=== PATIENT | female | born 1985 | race American Indian/Alaskan Native ===

== ENCOUNTER 2018-09-09 11:00 | Emergency (ER) | payer OTHER ==
[2018-09-09 11:17] VITALS: BP 134/68
--- NOTE | 2018-09-09 11:23 | Emergency Department Report ---
Blank Doc - Documentation Documentation: 33 y o f presents with vag bleed started this am states approx 8 weeks gestation no pelv pain This initial assessment diagnostic orders/clinical plan/treatment (s) is/Are subject change based on patient's health status, clinical progression and re- assessment by fellow clinical providers in the ED. Further treatment and work-up at subsequent clinical providers discretion. Patient/guardians urged not to elope from their condition may be serious if not clinically assessed and managed. Initial order include: labs,US ordered ACC evaluate
[2018-09-09 12:09] LABS: Basophils % (Auto) 0.2 % (0.0-1.8); Eosinophils % (Auto) 0.5 % (0.0-4.3); Hematocrit 37.6 % (30.3-42.9); Hemoglobin 12.6 gm/dl (10.1-14.3); Lymphocytes # (Auto) 1.6 K/mm3 (1.2-5.4); Mean Corpuscular HGB Conc 34 % (30-34); Mean Corpuscular Volume 83 fl (79-97); Monocytes # (Auto) 0.8 K/mm3 (0.0-0.8); Monocytes % (Auto) 12.2 % (0.0-7.3); Platelet Count 260 K/mm3 (140-440); Red Blood Count 4.53 M/mm3 (3.65-5.03); Red Cell Distribution Width 14.1 % (13.2-15.2)
--- NOTE | 2018-09-09 13:25 | Emergency Department Report ---
HPI - General Chief Complaint: Vaginal Bleeding Time Seen by Provider: 09/09/18 11:19 - HPI HPI: 33-year-old female presents to the emergency department with complaint of some moderate to heavy vaginal bleeding that started this morning. She also complains of some left-sided flank and abdominal pain that was sharp earlier today but has since resolved. The patient is currently about 7 weeks . She is from [place] and recently had an ultrasound done that showed her to be about 6 weeks . She says that they saw a fetus and heartbeat at that time. With this she is . Otherwise her past medical history. She has not taken anything for her symptoms prior to arrival. ED Past Medical Hx - Past Medical History Previous Medical History?: No - Surgical History Past Surgical History?: Yes Hx Appendectomy: Yes - Social History Smoking Status: Never Smoker Substance Use Type: None - Medications Home Medications: Home Medications Medication Instructions Recorded Confirmed Last Taken Type Nitrofurantoin Monohyd/M-Cryst 100 mg PO BID #14 capsule 09/09/18 Unknown Rx [Macrobid 100 mg Capsule] ED Review of Systems ROS: Stated complaint: 7 WKS /BLEEDING Other details as noted in HPI Comment: All other systems reviewed and negative Constitutional: denies: chills, fever Eyes: denies: eye pain, vision change ENT: denies: ear pain, throat pain Respiratory: denies: cough, shortness of breath Cardiovascular: denies: chest pain, palpitations Gastrointestinal: abdominal pain. denies: nausea, vomiting Genitourinary: other (vaginal bleeding). denies: dysuria Musculoskeletal: denies: back pain, arthralgia Skin: denies: rash, lesions Neurological: denies: headache, weakness Physical Exam - Physical Exam Vital Signs: Vital Signs 09/09/18 11:15 Temperature 97.8 F Pulse Rate 79 Respiratory 18 Rate Blood Pressure 134/68 O2 Sat by Pulse 98 Oximetry Physical Exam: GENERAL: The patient is well-developed well-nourished. HEENT: Normocephalic. Atraumatic. Patient has moist mucous membranes. EYES: Extraocular motions are intact. Pupils are equal and reactive to light bilaterally. NECK: Supple. Trachea is midline. CHEST/LUNGS: Clear to auscultation. There is no respiratory distress noted. HEART/CARDIOVASCULAR: Regular. There is no tachycardia. There is no obvious murmur. ABDOMEN: Abdomen is soft, nontender. Patient has normal bowel sounds. There is no abdominal distention. SKIN: Skin is warm and dry. NEURO: The patient is awake, alert, and oriented. The patient is cooperative. The patient has no focal neurologic deficits. The patient has normal speech. MUSCULOSKELETAL: There is no tenderness or deformity. There is no evidence of acute injury. ED Course Vital Signs 09/09/18 11:15 Temperature 97.8 F Pulse Rate 79 Respiratory 18 Rate Blood Pressure 134/68 O2 Sat by Pulse 98 Oximetry ED Medical Decision Making - Lab Data Result diagrams: 09/09/18 11:56 - Radiology Data Radiology results: report reviewed ULTRASOUND OB LESS THAN 14 WEEKS - TRANSABDOMINAL AND TRANSVAGINAL INDICATION: Vaginal bleeding. Serum beta-hCG 120,236 units. COMPARISON: None similar at this institution. FINDINGS: Transabdominal and transvaginal pelvic sonography performed in this patient with LMP of 05/31/2018 and estimated menstrual age of 14 weeks and 3 days. It demonstrates an anteverted, gravid uterus estimated at 10.2 x 5.5 x 5.8 cm with a single, viable intrauterine gestation with heart rate of 177 beats per minute. Approximately 4.4 cm fundal fibroid toward the right, endovaginal image 12. Mean gestational sac diameter of 5.08 cm corresponds to 10 weeks and 6 days. A 2.1 x 0.8 cm paragestational possible subchorionic hemorrhage as on endovaginal image 21. Mean crown-rump length of 1.61 cm corresponds to 8 weeks and 0 days. Yolk sac measures 5 mm. Closed cervix. No significant pelvic free fluid. Right ovary only seen transvaginally and prominent/enlarged at 6.9 x 3 x 4.4 cm with a 3.2 cm complex, slightly heterogeneous/echogenic focus as on endovaginal image 29. Left ovary unremarkable at 2.9 x 1.6 x 2.2 cm. CONCLUSION: 1. Single, live intrauterine gestation with an ultrasound estimated age of 9 weeks and 3 days and CLAU of 04/11/2019. Please also correlate clinically for accuracy of the LMP to explain approximately 5 week discrepancy with the estimated menstrual age. 2. Various other findings, as above. Thank you for the opportunity to participate in this patient's care. Transcribed By: RS Dictated By: NICOLE REED MD Electronically Authenticated By: NICOLE REED MD Signed Date/Time: 09/09/18 3547 - Medical Decision Making This patient presents to the emergency department with a complaint of some spo ntaneous vaginal bleeding while . She also had some left-sided abdominal and/or pelvic pain that has since resolved. Labs are mostly unremarkable except for a urinary tract infection. Ultrasound shows a live intrauterine at about 10 weeks. I have discussed with the patient regarding the diagnosis of threatened miscarriage. She will be started on antibiotics and will continue taking her vitamins. She returns back to [place] tomorrow and has been instructed to follow up with an CRISIS THERAPIST as soon as possible. Otherwise she will return to the closest emergency Department with any worsening of her symptoms or with any acute distress. She understands and agrees to the plan. - Differential Diagnosis miscarriage, fibroids, UTI, Critical Care Time: No Critical care attestation.: If time is entered above; I have spent that time in minutes in the direct care of this critically ill patient, excluding procedure time. ED Disposition Clinical Impression: Threatened miscarriage Qualifiers: Weeks of gestation: 10 weeks Qualified Code(s): Z3A.10 - 10 weeks gestation of UTI (urinary tract infection) Qualifiers: Urinary tract infection type: acute cystitis Hematuria presence: with hematuria Qualified Code(s): N30.01 - Acute cystitis with hematuria Disposition: - TO HOME OR SELFCARE Is pt being admited?: No Condition: Stable Instructions: Threatened Miscarriage (ED), (ED), Urinary Tract Infection in Women (ED) Additional Instructions: Please follow up with an CRISIS THERAPIST when you return home. Return to emergency department with any increased vaginal bleeding, any sharp abdominal or pelvic cramping pains, worsening of your symptoms, or any acute distress. Take the antibiotics as prescribed for your urinary tract infection. You can take Tylenol every 4-6 hours, using weight-based dosing, as needed for any discomfort. Otherwise do not take any medication that is not prescribed by a physician. Prescriptions: Nitrofurantoin Monohyd/M-Cryst [Macrobid 100 mg Capsule] 100 mg PO BID #14 capsule Referrals: OBRAPHAELN, Albina [Other] - VLADIMIR Time of Disposition: 14:27
[2018-09-09 13:28] LABS: Bacteria,Urine 1+ /HPF (Negative); Bilirubin,Urine NEG (Negative); Blood,Urine LG (Negative); Color,Urine Yellow (Yellow); Mucus,Urine FEW /HPF; Protein,Urine <15 mg/dL mg/dL (Negative); Urobilinogen,Urine < 2.0 mg/dL (<2.0)
[2018-09-09] MEDS ORDERED: MACROBID PO ONE (13:34)
--- NOTE | 2018-09-09 14:17 | Ultrasound Report ---
ULTRASOUND OB LESS THAN 14 WEEKS - TRANSABDOMINAL AND TRANSVAGINAL INDICATION: Vaginal bleeding. Serum beta-hCG 120,236 units. COMPARISON: None similar at this institution. FINDINGS: Transabdominal and transvaginal pelvic sonography performed in this patient with LMP of 05/31/2018 and estimated menstrual age of 14 weeks and 3 days. It demonstrates an anteverted, gravid uterus estimated at 10.2 x 5.5 x 5.8 cm with a single, viable intrauterine gestation with heart rate of 177 beats per minute. Approximately 4.4 cm fundal fibroid toward the right, endovaginal image 12. Mean gestational sac diameter of 5.08 cm corresponds to 10 weeks and 6 days. A 2.1 x 0.8 cm paragestational possible subchorionic hemorrhage as on endovaginal image 21. Mean crown-rump length of 1.61 cm corresponds to 8 weeks and 0 days. Yolk sac measures 5 mm. Closed cervix. No significant pelvic free fluid. Right ovary only seen transvaginally and prominent/enlarged at 6.9 x 3 x 4.4 cm with a 3.2 cm complex, slightly heterogeneous/echogenic focus as on endovaginal image 29. Left ovary unremarkable at 2.9 x 1.6 x 2.2 cm. CONCLUSION: 1. Single, live intrauterine gestation with an ultrasound estimated age of 9 weeks and 3 days and CLAU of 04/11/2019. Please also correlate clinically for accuracy of the LMP to explain approximately 5 week discrepancy with the estimated menstrual age. 2. Various other findings, as above. Thank you for the opportunity to participate in this patient's care.
== END 2018-09-09 14:42 | disposition home or self-care (01) ==
LOC: ED 11:00
DX: O20.0 Threatened abortion (principal); O23.41 Unspecified infection of urinary tract in pregnancy, first trimester; Z90.89 Acquired absence of other organs; Z3A.10 10 weeks gestation of pregnancy
CPT/HCPCS: 36415; 76801; 76817; 81001; 84702; 85025